=== PATIENT | female | born 1945 | race Caucasian/White ===

== ENCOUNTER 2018-03-09 18:26 | Emergency (ER) | payer BC ==
[2018-03-09] MEDS: predniSONE 20 MG TAB PO (21:50)
[2018-03-09] MEDS: KETOROLAC 15 MG INJ IM (21:52)
[2018-03-09 21:59] LABS: URINE BLOOD (Dip) POC Negative (NEGATIVE); URINE GLUCOSE (Dip) POC Negative (NEGATIVE); URINE KETONES (Dip) POC Negative (NEGATIVE); URINE LEUKOCYTE EST (Dip) POC Negative (NEGATIVE); URINE NITRITE (Dip) POC Positive (NEGATIVE); URINE TOTAL PROTEIN POC Negative (NEGATIVE)
== END 2018-03-09 22:22 | disposition home or self-care (01) ==
LOC: FTE 18:26
DX: M54.9 Dorsalgia, unspecified (principal); I10 Essential (primary) hypertension; E11.9 Type 2 diabetes mellitus without complications; N39.0 Urinary tract infection, site not specified; M79.2 Neuralgia and neuritis, unspecified
CPT/HCPCS: 81003; 96372; 99284-25

== ENCOUNTER 2018-03-15 19:19 | Emergency (ER) | payer BC ==
[2018-03-15] MEDS: KETOROLAC 30 MG INJ IM (20:29)
== END 2018-03-15 21:37 | disposition home or self-care (01) ==
LOC: FTE 21:37
DX: M54.16 Radiculopathy, lumbar region (principal); I10 Essential (primary) hypertension; E11.9 Type 2 diabetes mellitus without complications; Z79.84 Long term (current) use of oral hypoglycemic drugs
CPT/HCPCS: 72100; 73510; 96372; 99284-25